=== PATIENT | female | born 1980 | race Caucasian/White ===

== ENCOUNTER 2018-06-13 20:44 | Emergency (ER) | payer OTHER ==
[2018-06-13] MEDS ORDERED: Tetracaine HCl/PF 0.5% 4 ML Bottle EYELF ONE (21:26)
[2018-06-13 21:32] VITALS: BP 137/90
--- NOTE | 2018-06-13 21:57 | EDM.PDOC ---
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 Earlier today her I felt okay but when she went to put in the lens she felt kind of like a burning sensation. She took out the lesions she cleaned it reinserted the did the same thing emergency pull it out again. She described this as sort of being like a scab when he scratches it and it sort of bundy. Without the contact lens her vision is blurry as usual. She's not really having pain is just an irritation feeling. Her tried to call her cloth piecer but was unable. left eye pain Pain Score (Numeric/FACES): 9 - Related Data Allergies Allergy/AdvReac Type Severity Reaction Status Date / Time No Known Allergies Allergy Verified 06/13/18 21:05 Home Meds: Home Meds NK [No Known Home Meds] 12/23/15 [History] Past Medical History HEENT History: Reports: Impaired Vision, Other (See Below) Other HEENT History: bilateral keratoconus. hard contact lenses Respiratory History: Reports: Asthma CLINICAL PATHOLOGIST History: Reports: Musculoskeletal History: Reports: Neck Pain, Chronic Neurological History: Reports: Migraines - Infectious Disease History Infectious Disease History: Reports: Chicken Pox Social & Family History - Tobacco Use Smoking Status *Q: Never Smoker - Caffeine Use Caffeine Use: Reports: Other Other Caffeine Use: ketones Caffeine Use Comment: occasional - Recreational Drug Use Recreational Drug Use: No ED ROS GENERAL - Review of Systems Review Of Systems: ROS reveals no pertinent complaints other than HPI. ED EXAM GENERAL W FULL EYE - Physical Exam Exam: See Below Exam Limited By: Other (This lady was unable to read the eye chart due to blurring of vision without the contact lens) General Appearance: Alert, WD/WN, Mild Distress Eye Exam: Bilateral Eye: EOMI, PERRL Conjunctiva & Sclera: Left: Injected Cornea Exam: Left: Other (Obviously there is some keratotic conus deformity to the cornea. No foreign body was seen under white light. Tetracaine drops were instilled in the eye followed by fluoroscopy seemed stain. The eye was examined under a high power magnifier. There is a very small linear defect which appears to be a small scratch at approximately the 7 o'clock position at the extreme edge of the cornea. There is light stippling across the lower half of the cornea mostly in the central one third of the lower half. Nothing looks like a corneal ulcer and and it does not look like any kind of a herpetic dendrite.) Pupillary Reaction: Bilateral: Brisk Anterior Chamber: Left: Other (Keratoconus deformity) Course - Vital Signs Last Recorded V/S: Last Vital Signs Temp 36.3 C 06/13/18 21:05 Pulse 76 06/13/18 21:05 Resp 17 06/13/18 21:05 BP 137/90 06/13/18 21:05 Pulse Ox 97 06/13/18 21:05 - Orders/Labs/Meds Meds: Medications Discontinued Medications Generic Name Dose Route Start Last Admin Trade Name Freq PRN Reason Stop Dose Admin Tetracaine HCl 1 ml 06/13/18 21:26 06/13/18 21:30 Tetracaine 0.5% Steri-Unit Milvia EYELF 06/13/18 21:27 1 ml ASDIRECTED ONE Administration Departure - Departure Time of Disposition: 21:57 Disposition: Home, Self-Care 01 Condition: Fair Clinical Impression: Corneal abrasion - Discharge Information Referrals: PCP,None [Primary Care Provider] - Additional Instructions: It looks like there may be a very small scratch to the cornea this would be at the 5 o'clock position at the very bottom edge of the cornea if you're looking in the mirror. It's a very tiny little scratch. The bottom half of the cornea has some little spots very tiny disc we call stippling. Overall it looks like the contact lens may have just sort of on about an rub the cornea. It does not look like any kind of infectious ulcer or herpes. Tonight use the gentamicin ointment. Apply about 1/2 inch every 4 hours. Be sure to see your eye doctor in the morning for a recheck and of course don't use the contact lens except as directed by your doctor.
== END 2018-06-13 22:12 | disposition home or self-care (01) ==
LOC: JP.ED 20:44
DX: S05.02XA Injury of conjunctiva and corneal abrasion without foreign body, left eye, initial encounter (principal); X58.XXXA Exposure to other specified factors, initial encounter
CPT/HCPCS: 99283